=== PATIENT | male | born 1980 | race Caucasian/White ===

== ENCOUNTER 2020-06-04 19:07 | Emergency (ER) | payer MEDICAID, OTHER ==
[~2020-06-04] VITALS: Ht 172.7 cm; Wt 77.1 kg
[2020-06-04] MEDS ORDERED: LIDOCAINE 0.5%-EPI 1:200,000 50 ML VIAL ONE (20:04)
[2020-06-04] MEDS ORDERED: TDAP [DIPH/PERTUSSIS/TET] 0.5 ML VIAL IM ONE ×2 (20:30→20:31)
[2020-06-04] MEDS ORDERED: IBUP-1955 PO (21:09)
[2020-06-04 21:15] VITALS: BP 131/87
--- NOTE | 2020-06-04 21:15 | NUR ---
Patient discharged to home in stable condition. Written and verbal after care instructions given. Patient verbalizes understanding of instruction.Pt ambulatory with a steady gait
[2020-06-04] MEDS ORDERED: NEOMY SULF/BACITRAC ZN/POLY 15 GM TUBE TP SCH (21:30)
== END 2020-06-04 21:15 | disposition home or self-care (01) ==
LOC: ER 19:10
DX: S81.811A Laceration without foreign body, right lower leg, initial encounter (principal); Z60.2 Problems related to living alone; V87.8XXA Person injured in other specified noncollision transport accidents involving motor vehicle (traffic), initial encounter; Y93.89 Activity, other specified; Y92.89 Other specified places as the place of occurrence of the external cause; Y99.8 Other external cause status
CPT/HCPCS: 12002; 90471; 90715; 99283; J3490

== ENCOUNTER 2020-06-22 16:57 | Emergency (ER) | payer MEDICAID ==
[~2020-06-22] VITALS: Ht 172.7 cm; Wt 77.1 kg
[~2020-06-22 16:57] MED LIST: IBUP-1955 PO
[2020-06-22 17:06] VITALS: BP 139/101
== END 2020-06-22 17:39 | disposition home or self-care (01) ==
LOC: ER 17:00
DX: S81.811D Laceration without foreign body, right lower leg, subsequent encounter (principal); F10.10 Alcohol abuse, uncomplicated; Y90.9 Presence of alcohol in blood, level not specified; Z60.2 Problems related to living alone; Z79.899 Other long term (current) drug therapy; X58.XXXD Exposure to other specified factors, subsequent encounter

== ENCOUNTER 2021-01-04 14:14 | Emergency (ER) | payer MEDICAID ==
[~2021-01-04] VITALS: Ht 172.7 cm; Wt 79.4 kg
[2021-01-04 14:33] VITALS: BP 143/92
--- NOTE | 2021-01-04 14:40 | NUR ---
TO ER BED 12, BIBSELF FOR SOB AND PHLEGM SINCE FRIDAY, APPEARS ANXIOUS, A&OX4, BREATHING UNLABORED
[2021-01-04 15:12] LABS: BASOPHILS % (AUTO) 0.3 % (0.0-2.0); EOSINOPHILS % (AUTO) 0.3 % (0.0-6.0); HEMATOCRIT 39 % (39-51); HEMOGLOBIN 13.6 g/dL (13.5-17.5); LYMPHOCYTES % (AUTO) 18.4 % (20.0-44.0); MEAN CORPUSCULAR HGB CONC 35 g/dl (31.0-36.0); MEAN CORPUSCULAR VOLUME 107 fL (80-96); MONOCYTES # (AUTO) 0.5 K/uL (0.1-1.30); MONOCYTES % (AUTO) 8.7 % (2.0-12.0); NEUTROPHILS # (AUTO) 3.8 K/uL (1.8-8.9); NEUTROPHILS % (AUTO) 72.3 % (43.0-81.0); RED BLOOD CELL COUNT(AUTO) 3.68 MIL/uL (4.5-6.0); WHITE BLOOD COUNT (AUTO) 5.2 K/uL (4.3-11.0)
[2021-01-04 15:24] LABS: CALCIUM, SERUM 9.2 mg/dL (8.5-10.1); CARBON DIOXIDE 27 mmol/L (21-32); CHLORIDE 98 mmol/L (98-107); CREATININE 0.6 mg/dL (0.6-1.3); GLUCOSE 125 mg/dL (74-106); PLATELET COUNT (AUTO) 78 K/uL (150-450); POTASSIUM 3.2 mmol/L (3.5-5.1); SODIUM SERUM 136 mmol/L (136-145); UREA NITROGEN, BLOOD 8 mg/dL (7-18)
[2021-01-04 16:15] LABS: EOSINOPHILS % (MANUAL) 1 % (0-4); LYMPHOCYTES % (MANUAL) 16 % (16-48); MONOCYTES % (MANUAL) 7 % (0-11.0); NEUTROPHILS % (MANUAL) 76 (42-76)
--- NOTE | 2021-01-04 16:15 | NUR ---
REQUEST FOR PCR, SPOKE TO ORACIO
== END 2021-01-04 16:45 | disposition home or self-care (01) ==
LOC: ER 14:18
DX: R06.02 Shortness of breath (principal); L40.9 Psoriasis, unspecified; Z20.822 Contact with and (suspected) exposure to COVID-19
CPT/HCPCS: 36415; 71045; 80048; 83880; 84484; 85007; 85025; 85378; 93005; 99285; C9803; U0003